=== PATIENT | male | born 1960 | race Caucasian/White ===

== ENCOUNTER → 2024-07-17 | Outpatient (CLI) | payer SELFPAY ==
[2024-07-17 18:30] LABS: Hemoglobin A1c 6.1 % (3.8-5.6)
== END | disposition home or self-care (01) ==
PROVIDERS: PCP Family Medicine; Referring Provider Specialist; Visit Provider Specialist
DX: E11.9 Type 2 diabetes mellitus without complications (principal)
CPT/HCPCS: 36415; 83036

== ENCOUNTER → 2024-08-06 | Outpatient (CLI) | payer SELFPAY ==
--- NOTE | 2024-08-06 09:40 | EKG12_ITS ---
Test Reason : PRE OP Blood Pressure : */* mmHG Vent. Rate : 63 BPM Atrial Rate : 63 BPM P-R Int : 168 ms QRS Dur : 102 ms QT Int : 420 ms P-R-T Axes : 28 -53 25 degrees QTcB Int : 429 ms Normal sinus rhythm Pulmonary disease pattern Left anterior fascicular block Abnormal ECG Confirmed by Elias Lee ([id number]), dictionary editor JANINE VALADEZ ([id number]) on 08/06/2024 1:19:10 PM Referred By: Eleazar Hartman Confirmed By: Elias Lee
== END | disposition home or self-care (01) ==
PROVIDERS: PCP Family Medicine; Referring Provider Specialist; Visit Provider Specialist
DX: Z01.810 Encounter for preprocedural cardiovascular examination (principal)
CPT/HCPCS: 93005